=== PATIENT | male | born 2000 | race African-American/Black ===

== ENCOUNTER 2019-08-19 10:43 | Emergency (ER) | payer OTHER ==
[~2019-08-19] VITALS: Ht 193 cm; Wt 85.0 kg
[2019-08-19 11:41] VITALS: BP 130/85
== END 2019-08-19 17:03 | disposition home or self-care (01) ==
LOC: ER 10:43
DX: J06.9 Acute upper respiratory infection, unspecified (principal); R03.0 Elevated blood-pressure reading, without diagnosis of hypertension
CPT/HCPCS: 71046; 87804; 99284